=== PATIENT | male | born 1980 | race Hispanic/Latino ===

== ENCOUNTER 2025-03-22 17:51 | Inpatient (IN) | payer BC ==
[~2025-03-22] VITALS: Ht 185.4 cm; Wt 95.3 kg
[2025-03-22] MEDS: SODIUM CHLORIDE 0.9% 1000ML 1,000 ML IV STA (19:10)
[2025-03-22] MEDS: KETOROLAC TROMETHAMINE 30 MG/ML VIAL IV STA (19:11)
[2025-03-22] MEDS: ONDANSETRON HCL INJ 2MG/ML 2ML 2 MG/ML VIAL IV STA (19:11)
[2025-03-22 19:21] LABS: BASOPHILS % 0.1 % (0.0-1.0); EOSINOPHILS % 0.0 % (0.0-6.0); LYMPHOCYTES % 8.7 % (18.0-39.1); MONOCYTES % 2.6 % (4.4-11.3); NEUTROPHILS % 88.3 % (38.7-80.0); RED CELL DISTRIBUTION WIDTH 13.0 % (11.7-14.4)
[2025-03-22 19:52] LABS: EST GLOMERULAR FILTRATION RATE 81.0 ML/MIN (>=60)
[2025-03-22] MEDS ORDERED: Morphine 4mg INJECTION 4 MG/ML INJ IV PRN (20:15)
[2025-03-22] MEDS ORDERED: KETOROLAC TROMETHAMINE 30 MG/ML VIAL IM PRN (20:15)
[2025-03-22] MEDS: SODIUM CHLORIDE 0.9% 1000ML 1,000 ML IV SCH (20:59)
[2025-03-22] MEDS ORDERED: PIPERACILLIN/TAZOBACTAM 3.375 GM VIAL ONE (21:00)
[2025-03-22 21:09] VITALS: PULSE 50; RESP 16; TEMP 98.8
[2025-03-22 22:01] VITALS: BP 165/73; PULSE 55; RESP 18; TEMP 97.4; O2SAT 100
[2025-03-22 22:19] VITALS: BP 162/73; PULSE 55; RESP 18; TEMP 97.4; O2SAT 100
[2025-03-23] VITALS (7 sets, daily range): BP systolic 142–166; BP diastolic 64–91; PULSE 50–80; RESP 18–20; TEMP 97.4–98.8; O2SAT 98–100
[2025-03-23] MEDS: ONDANSETRON HCL INJ 2MG/ML 2ML 2 MG/ML VIAL IV PRN (00:21)
[2025-03-23 00:58] LABS: LEUKOCYTE ESTERASE ,URINE NEGATIVE (NEGATIVE); PROTEIN,URINE DIPSTICK 2+ (NEGATIVE); URINE UROBILINOGEN 1 mg/dL (0.2 - 1)
[2025-03-23 01:07] LABS: EPITHELIAL CELLS,URINE FEW /LPF
[2025-03-23 08:19] LABS: BASOPHILS % 0.2 % (0.0-1.0); EOSINOPHILS % 0.2 % (0.0-6.0); LYMPHOCYTES % 22.7 % (18.0-39.1); MONOCYTES % 8.2 % (4.4-11.3); NEUTROPHILS % 68.4 % (38.7-80.0); RED CELL DISTRIBUTION WIDTH 13.2 % (11.7-14.4)
[2025-03-23 09:07] LABS: EST GLOMERULAR FILTRATION RATE 81.0 ML/MIN (>=60)
[2025-03-23] MEDS ORDERED: MIDAZOLAM HCL 2 MG/2 ML VIAL ONE (15:02)
[2025-03-23] MEDS ORDERED: FENTANYL CITRATE/PF 100MCG/2 ML INJ ONE (15:02)
[2025-03-23] MEDS ORDERED: LIDOCAINE HCL 2% LOCAL INJ 5 ML SDV VIAL INJ ONE (15:05)
[2025-03-23] MEDS ORDERED: PROPOFOL IV EMULSION 10 MG/ML 20 ML VIAL ONE ×2 (15:05→15:07)
[2025-03-23] MEDS ORDERED: KETOROLAC TROMETHAMINE 30 MG/ML VIAL ONE (15:13)
[2025-03-23] MEDS ORDERED: FAMOTIDINE 20 MG/2 ML VIAL IV ONE (15:13)
[2025-03-23] MEDS ORDERED: GLYCOPYRROLATE INJ 0.2 MG/ML VIAL ONE (15:13)
[2025-03-23] MEDS ORDERED: DEXAMETHASONE SOD PHOS INJ 4 MG/ML SDV ONE (15:13)
[2025-03-23] MEDS ORDERED: ONDANSETRON HCL INJ 2MG/ML 2ML 2 MG/ML VIAL ONE (15:13)
[2025-03-23] MEDS: FENTANYL CITRATE/PF 100MCG/2 ML INJ ONE (16:00)
[2025-03-23] MEDS ORDERED: PHENAZOPYRIDINE HCL 100 MG TAB PO PRN (16:00)
[2025-03-23] MEDS ORDERED: ACETAMINOPHEN/CODEINE 300MG - 30MG TAB PO PRN (16:00)
[2025-03-23] MEDS: SOLIFENACIN SUCCINATE 5 MG TAB PO SCH (18:15)
[2025-03-24] MEDS: KETOROLAC TROMETHAMINE 30 MG/ML VIAL IM PRN (01:17)
[2025-03-24] MEDS: HYDROCODONE/APAP 10MG-325MG TAB PO PRN (05:30)
[2025-03-24 06:08] LABS: BASOPHILS % 0.1 % (0.0-1.0); EOSINOPHILS % 0.0 % (0.0-6.0); LYMPHOCYTES % 14.5 % (18.0-39.1); MONOCYTES % 5.1 % (4.4-11.3); NEUTROPHILS % 79.9 % (38.7-80.0); RED CELL DISTRIBUTION WIDTH 12.5 % (11.7-14.4)
[2025-03-24 06:31] LABS: EST GLOMERULAR FILTRATION RATE 98.0 ML/MIN (>=60)
[2025-03-24] MEDS ORDERED: BISACODYL 10 MG SUPP PR PRN (09:30)
[2025-03-24] MEDS: BISACODYL 10 MG SUPP PR ONE (10:32)
[2025-03-24] MEDS: POLYETHYLENE GLYCOL 3350 17 GM PACK PO ONE (10:33)
[2025-03-24 12:44] VITALS: BP 144/97; PULSE 51; RESP 18; TEMP 98.2; O2SAT 100
[2025-03-24 15:16] VITALS: BP 144/97; RESP 18; TEMP 98.2; O2SAT 100
[2025-03-24 15:21] VITALS: BP 144/97; PULSE 51; RESP 18; TEMP 98.2; O2SAT 100
[2025-03-24 17:30] VITALS: BP 143/77; PULSE 52; RESP 18; TEMP 98.4; O2SAT 100
[2025-03-24] MEDS: SENNA-S TABLET PO SCH (17:58)
[2025-03-24 20:49] VITALS: BP 128/84; PULSE 55; RESP 16; TEMP 98.8; O2SAT 98
[2025-03-24 21:00] VITALS: BP 128/84; PULSE 55; RESP 18; TEMP 98.8; O2SAT 100
[2025-03-25 00:55] VITALS: BP 143/79; PULSE 51; RESP 16; TEMP 98.5; O2SAT 99
[2025-03-25 06:54] LABS: BASOPHILS % 0.7 % (0.0-1.0); EOSINOPHILS % 1.2 % (0.0-6.0); LYMPHOCYTES % 37.0 % (18.0-39.1); MONOCYTES % 8.5 % (4.4-11.3); NEUTROPHILS % 52.4 % (38.7-80.0); RED CELL DISTRIBUTION WIDTH 12.8 % (11.7-14.4)
[2025-03-25 07:01] LABS: EST GLOMERULAR FILTRATION RATE 90.0 ML/MIN (>=60)
[2025-03-25 09:00] VITALS: BP 143/79; PULSE 51; RESP 16; TEMP 98.5; O2SAT 99
[2025-03-25 10:04] VITALS: BP 133/82; PULSE 53; RESP 19; TEMP 98.1; O2SAT 98
[2025-03-25 12:35] VITALS: BP 137/70; PULSE 59; RESP 20; TEMP 98; O2SAT 99
== END 2025-03-25 11:35 | disposition home or self-care (01) | DRG 661 ==
LOC: ER 18:28 → ERHOLD 20:09 → MED/SURG2 21:21
PROVIDERS: ADMIT Internal Medicine; ATTEND Internal Medicine
PROC: 0TCB8ZZ Extirpation of Matter from Bladder, Via Natural or Artificial Opening Endoscopic (ICD-10-PCS; 2025-03-23)
PROC: 0T9B80Z Drainage of Bladder with Drainage Device, Via Natural or Artificial Opening Endoscopic (ICD-10-PCS; 2025-03-23)
PROC: BT141ZZ Fluoroscopy of Kidneys, Ureters and Bladder using Low Osmolar Contrast (ICD-10-PCS; 2025-03-23)
PROC: 0TCB8ZZ Extirpation of Matter from Bladder, Via Natural or Artificial Opening Endoscopic (ICD-10-PCS; 2025-03-23)
PROC: 0T778DZ Dilation of Left Ureter with Intraluminal Device, Via Natural or Artificial Opening Endoscopic (ICD-10-PCS; principal; 2025-03-23 15:02)
DX: N13.6 Pyonephrosis (principal); D72.829 Elevated white blood cell count, unspecified; R80.9 Proteinuria, unspecified; R81 Glycosuria; R31.0 Gross hematuria; K59.00 Constipation, unspecified; N21.0 Calculus in bladder; N40.1 Benign prostatic hyperplasia with lower urinary tract symptoms; N32.89 Other specified disorders of bladder; Z87.442 Personal history of urinary calculi; Z72.0 Tobacco use
CPT/HCPCS: 36415; 74176; 74420; 80048; 80053; 81001; 83690; 83970; 84550; 85025; 87086; 88300; 99284; C1758; C2617; J1100; J1308; J1885; J2003; J2250; J2405; J2470; J2543; J7030